=== PATIENT | female | born 1950 | race Caucasian/White ===

== ENCOUNTER 2016-06-13 16:06 | Emergency (ER) | payer OTHER ==
[~2016-06-13] VITALS: Ht 165.1 cm; Wt 59.0 kg
[~2016-06-13 16:06] MED LIST: CELE100 PO
[2016-06-13 16:07] VITALS: BP 160/74; PULSE 99; RESP 16; TEMP 98.3; O2SAT 99
--- NOTE | 2016-06-13 16:19 | PD ---
Physical Exam Date Seen by Provider: Jun 13, 2016 Time Seen by Provider: 16:17 Narrative 66 year old female presents to the emergency department for evaluation of possible UTI. Patient has history of MS and gets frequent UTIs. She is currently on Macrobid by her urologist. However, she developed subjective fever , nausea, chills last night and her urologist instructed her to come to the emergency department. Patient awaiting bed placement. Data Data Last Documented VS Vital Signs Date Time Temp Pulse Resp B/P Pulse Ox O2 Delivery O2 Flow Rate FiO2 06/13/16 16:07 98.3 99 16 160/74 99 MDM Supervised Visit with BILL: Gita Espinal Jun 13, 2016 16:19
[2016-06-13 17:23] LABS: BACTERIA, URINE RARE /hpf; BLOOD, URINE TRACE (NEG); COMMENT (UR) CULT NOT INDICATED; CULTURE IF INDICATED CULT NOT INDICATED; GLUCOSE,URINE NEG (NEG); KETONE, URINE NEG (NEG); NITRITE,URINE NEG (NEG); SQUAMOUS EPITHELIAL CELL URINE 1 /hpf (0-5); URINE COLOR YELLOW (YELLW/STRAW)
[2016-06-13] MEDS ORDERED: NITR100C4 PO (17:32)
--- NOTE | 2016-06-13 17:54 | PD ---
HPI Chief Complaint: Complaint Time Seen by Provider: 17:52 Travel History International Travel<30 days: No Contact w/Intl Traveler<30days: No Traveled to known affect area: No History of Present Illness HPI 66-year-old female presents to the emergency department for evaluation for urinary tract infection. She has MS and gets frequent urinary tract infections. She is currently taking Macrobid which she started yesterday morning and was prescribed by her urologist, Dr. Garner. Last night she experienced subjective fever, chills, nausea and her urologist told her to come in to the ER for evaluation. She is also complaining of abdominal pain that extends midline from the left right. Reports urinary frequency and urgency. Denies dysuria. Denies change in stool. Had a normal bowel movement this morning. Denies hematochezia or hematuria. Reports low back pain. Allergies to Demerol. Primary care provider is in [place]. History of MS. No other modifying factors or associated signs and symptoms. PFSH Past Medical History Influenza Vaccination: Yes ?: Not Menopausal: Yes Past Surgical History Section: Yes Joint Replacement: Yes (right knee replacement, trigger release, rotator cuff) Neurologic Surgery: Yes (c5-c7 fusion) Social History Alcohol Use: Yes (occasionally) Tobacco Use: No Substance Use: No Allergies-Medications (Allergen,Severity, Reaction): Coded Allergies: Demerol (Verified Allergy, Severe, 06/13/16) Reported Meds & Prescriptions Reported Meds & Active Scripts Active Reported Nitrofurantoin Monohydrate Macrocrystals (Nitrofurantoin Monoh/Nitrofur Macro) 100 Mg Cap 100 Mg PO BID Review of Systems Except as stated in HPI: all other systems reviewed are Neg Physical Exam Narrative GENERAL: Well-nourished, well-developed female patient, in no acute distress; afebrile SKIN: Warm and dry. HEAD: Atraumatic. Normocephalic. EYES: Pupils equal and round. No scleral icterus. No injection or drainage. ENT: Mucosa pink and moist. Airway patent. NECK: Trachea midline. CARDIOVASCULAR: Regular rate and rhythm. No murmur appreciated. RESPIRATORY: No accessory muscle use. Clear to auscultation. Breath sounds equal bilaterally. GASTROINTESTINAL: Abdomen soft, tenderness on palpation to left and right upper quadrants, nondistended. Hepatic and splenic margins not palpable. Bowel sounds are active 4 quadrants. Nonrigid. No rebound tenderness. No guarding. BACK: No CVA tenderness. MUSCULOSKELETAL: No obvious deformities. No clubbing. No cyanosis. No edema. NEUROLOGICAL: Awake and alert. Oriented 3. No obvious cranial nerve deficits. Motor grossly within normal limits. Normal speech. PSYCHIATRIC: Appropriate mood and affect; insight and judgment normal. Data Data Last Documented VS Vital Signs Date Time Temp Pulse Resp B/P Pulse Ox O2 Delivery O2 Flow Rate FiO2 06/13/16 21:33 98.4 62 16 118/63 100 06/13/16 18:16 Room Air Orders Urinalysis - C+S If Indicated (06/13/16 16:49) Complete Blood Count With Diff (06/13/16 17:54) Comprehensive Metabolic Panel (06/13/16 17:54) Lipase (06/13/16 17:54) Ct Abd/Pel W Iv Contrast(Rout) (06/13/16 17:54) Iv Access Insert/Monitor (06/13/16 17:54) Ecg Monitoring (06/13/16 17:54) Oximetry (06/13/16 17:54) Sodium Chloride 0.9% Flush (Ns Flush) (06/13/16 18:00) Iohexol 350 Inj (Omnipaque 350 Inj) (06/13/16 19:53) Labs Laboratory Tests Test 06/13/16 06/13/16 16:53 18:15 Urine Color YELLOW Urine Turbidity CLEAR Urine pH 7.0 Urine Specific [place] 1.002 Urine Protein NEG mg/dL Urine Glucose (UA) NEG mg/dL Urine Ketones NEG mg/dL Urine Occult Blood TRACE Urine Nitrite NEG Urine Bilirubin NEG Urine Urobilinogen LESS THAN 2.0 MG/DL Urine Leukocyte Esterase MOD Urine WBC 3 /hpf Urine Squamous Epithelial 1 /hpf Cells Urine Bacteria RARE /hpf Microscopic Urinalysis Comment CULT NOT INDICATED White Blood Count 10.7 TH/MM3 Red Blood Count 4.71 MIL/MM3 Hemoglobin 13.6 GM/DL Hematocrit 40.2 % Mean Corpuscular Volume 85.3 FL Mean Corpuscular Hemoglobin 28.8 PG Mean Corpuscular Hemoglobin 33.8 % Concent Red Cell Distribution Width 12.8 % Platelet Count 171 TH/MM3 Mean Platelet Volume 7.7 FL Neutrophils (%) (Auto) 87.0 % Lymphocytes (%) (Auto) 6.2 % Monocytes (%) (Auto) 5.0 % Eosinophils (%) (Auto) 1.7 % Basophils (%) (Auto) 0.1 % Neutrophils # (Auto) 9.3 TH/MM3 Lymphocytes # (Auto) 0.7 TH/MM3 Monocytes # (Auto) 0.5 TH/MM3 Eosinophils # (Auto) 0.2 TH/MM3 Basophils # (Auto) 0.0 TH/MM3 CBC Comment DIFF FINAL Differential Comment Sodium Level 137 MEQ/L Potassium Level 3.9 MEQ/L Chloride Level 102 MEQ/L Carbon Dioxide Level 28.8 MEQ/L Anion Gap 6 MEQ/L Blood Urea Nitrogen 9 MG/DL Creatinine 0.86 MG/DL Estimat Glomerular Filtration 66 ML/MIN Rate Random Glucose 98 MG/DL Calcium Level 9.3 MG/DL Total Bilirubin 2.2 MG/DL Aspartate Amino Transf 16 U/L (AST/SGOT) Alanine Aminotransferase 20 U/L (ALT/SGPT) Alkaline Phosphatase 60 U/L Total Protein 7.2 GM/DL Albumin 4.0 GM/DL Lipase 102 U/L [facility] Medical Decision Making Medical Screen Exam Complete: Yes Emergency Medical Condition: Yes Medical Record Reviewed: Yes Differential Diagnosis UTI, pyelonephritis, kidney stones Narrative Course 56-year-old female that was sent by her urologist for evaluation. She is currently being treated for urinary tract infection with Macrobid and reported subjective fevers, chills and nausea last night. Patient is afebrile and nontoxic-appearing in the ER. Patient placed on cardiopulmonary monitor. IV site obtained. Labs and CT abdomen/pelvis ordered. 1751: Urinalysis with moderate high urine leukocyte esterase, trace high occult blood, and rare urine bacteria. Urine culture not indicated. 1946: CBC unremarkable. CMP unremarkable. Total bilirubin 2.2. 2034: CT abdomen/pelvis with no acute findings. Patient will be discharged home. Instructed to follow up with gastroenterology and urology. Patient verbalizes understanding and agreement with treatment plan. Patient is medically cleared and stable for discharge. Discussed reasons to return to the emergency department. Instructed patient to follow up with primary care provider. Patient agrees with treatment plan. The patients vital signs are stable and the patient is stable for outpatient follow-up and treatment. Patient discharged home, stable and in no acute distress. Diagnosis Primary Impression: Abdominal pain Qualified Code: R10.9 - Abdominal pain, unspecified location Referrals: Primary Care Physician Urologist Patient Instructions: Abdominal Pain (ED), General Instructions Additional Instructions: Continue medications as prescribed Follow-up with primary care provider Follow-up with urology Return to the emergency department immediately with worsening of symptoms Med/Other Pt SpecificInfo: No Change to Meds, No Meds Exist/No RX given Disposition: 01 DISCHARGE HOME Condition: Stable Kimberli Miranda TELEPHONE INFORMATION CLERK Jun 13, 2016 17:54
[2016-06-13] MEDS ORDERED: SODIUM CHLORIDE 0.9% FLUSH 10 ML FLUSH IV FLUSH PRN (18:00)
[2016-06-13 18:16] VITALS: BP 148/65; PULSE 84; RESP 20; O2SAT 100
[2016-06-13 18:50] LABS: AUTOMATED NEUTROPHIL # 9.3 TH/MM3 (1.8-7.7); BASOPHIL % 0.1 % (0.0-2.0); EOSINOPHIL # 0.2 TH/MM3 (0-0.4); EOSINOPHIL % 1.7 % (0.0-4.0); HEMATOCRIT 40.2 % (35.0-46.0); HEMO FLAGS DIFF FINAL; LYMPH % 6.2 % (9.0-44.0); LYMPHOCYTE # 0.7 TH/MM3 (1.0-4.8); MEAN CELL VOLUME 85.3 FL (80.0-100.0); MEAN CORPUSCULAR HEMOGLOBIN 28.8 PG (27.0-34.0); MEAN CORPUSCULAR HGB CONC 33.8 % (32.0-36.0); PLATELET COUNT 171 TH/MM3 (150-450); RED BLOOD COUNT 4.71 MIL/MM3 (4.00-5.30); RED CELL DISTRIBUTION WIDTH 12.8 % (11.6-17.2); WHITE BLOOD COUNT 10.7 TH/MM3 (4.0-11.0)
[2016-06-13 19:14] LABS: ANION GAP 6 MEQ/L (5-15); AST (GOT) 16 U/L (15-37); BICARBONATE 28.8 MEQ/L (21.0-32.0); BLOOD UREA NITROGEN 9 MG/DL (7-18); CHLORIDE 102 MEQ/L (98-107); GLOMERULAR FILTRATION RATE 66 ML/MIN (>89); POTASSIUM 3.9 MEQ/L (3.5-5.1); SODIUM (NA) 137 MEQ/L (136-145)
[2016-06-13 19:17] LABS: ALKALINE PHOSPHATASE 60 U/L (45-117); ALT (GPT) 20 U/L (10-53); TOTAL BILIRUBIN ADULT 2.2 MG/DL (0.2-1.0)
[2016-06-13] MEDS ORDERED: IOHEXOL 350 MG/ML 10 ML VIAL (for RAD DIAG) IV ONE (19:53)
--- NOTE | 2016-06-13 20:28 | RADRPT ---
EXAM DATE/TIME: 06/13/2016 19:42 [facility] COMPARISON: No previous studies available for comparison. INDICATIONS : Abdominal pain with urinary tract infection. Nausea with no vomiting. IV CONTRAST: 100 cc Omnipaque 350 (iohexol) IV ORAL CONTRAST: No oral contrast ingested. RADIATION DOSE: 6.64 CTDIvol (mGy) MEDICAL HISTORY : None SURGICAL HISTORY : section. ENCOUNTER: Initial ACUITY: 1 day PAIN SCALE: 5/10 LOCATION: abdomen TECHNIQUE: Volumetric scanning of the abdomen and pelvis was performed. Using automated exposure control and ad justment of the mA and/or kV according to patient size, radiation dose was kept as low as reasonably achievable to obtain optimal diagnostic quality images. FINDINGS: LOWER LUNGS: There is minimal increased density at the posterior lung bases likely related to dependent atelectasi s. LIVER: Homogeneous density without lesion. There is no dilation of the biliary tree. No calcified gallston es. SPLEEN: Normal size without lesion. PANCREAS: Within normal limits. KIDNEYS: Normal in size and shape. There is no mass, stone or hydronephrosis. ADRENAL GLANDS: Within normal limits. VASCULAR: There is no aortic aneurysm. BOWEL/MESENTERY: The stomach, small bowel, and colon demonstrate no acute abnormality. There is no free intraperitone al air or fluid. ABDOMINAL WALL: Within normal limits. RETROPERITONEUM: There is no lymphadenopathy. BLADDER: No wall thickening or mass. REPRODUCTIVE: There is a calcification in the left pelvis likely related to the uterus. INGUINAL: There is no lymphadenopathy or hernia. MUSCULOSKELETAL: Within normal limits for patient age. CONCLUSION: No acute abnormality seen. Patrick Nixon MD on June 13, 2016 at 20:24 Board Certified Radiologist. This report was verified electronically.
[2016-06-13 21:33] VITALS: BP 118/63; TEMP 98.4
== END 2016-06-13 21:33 | disposition home or self-care (01) ==
LOC: NEPD 16:06
DX: R10.9 Unspecified abdominal pain (principal); R50.9 Fever, unspecified; R11.0 Nausea; R35.0 Frequency of micturition; R39.15 Urgency of urination; M54.5 Low back pain; G35 Multiple sclerosis
CPT/HCPCS: 74177; 80053; 81001; 83690; 85025; 99284; Q9967